=== PATIENT | female | born 1985 | race Caucasian/White ===

== ENCOUNTER → 2016-10-05 | Outpatient (CLI) | payer OTHER ==
--- NOTE | 2016-10-05 22:41 | MR ---
EXAMINATION TYPE: MR pelvis wo/w con DATE OF EXAM: 10/05/2016 8:57 PM COMPARISON: Outside pelvic ultrasound report November 22, 2015. CT abdomen and pelvis April 22, 2016. HI STORY: Pelvic and perineal pain and other chronic pain per order. Bleeding and pelvic pain rule out t umors per patient. CONTRAST: Standard multiplanar, multisequence MRI departmental protocol utilizing 10 mL intravenous MultiHance gadolinium contrast. Imaging is focused on the pelvis. FINDINGS: Uterus is anteverted in shape and within normal limits in size. No suspicious thickening of endometrial canal is identified. No suspicious myometrial masses are identified. Cervix is felt with in normal limits. There is tubular shaped low T1 and T2 signal intensity in vaginal canal likely refl ecting air from tampon use. Increased T1 signal central endometrium is consistent with active blood p roduct or menses. Junctional zone felt within normal limits. No significant free fluid in pelvis is s een. Both ovaries are identified and normal in size. Left ovary is seen best on axial image 17 series 601. Thin-walled cystic lesions in both ovaries likely reflect prominent follicles. No concerning adnexal masses are present. There is no suspicious small or large bowel dilatation. There is some prominence of fecal material in the visualized sigmoid colon and cecum. Patient has very little intra-abdominal fat making evaluatio n suboptimal. No concerning pelvic adenopathy is seen. Urinary bladder is felt within normal limits. Visualized oss eous structures are intact. There are small symmetric hip joint effusions seen. IMPRESSION: Perhaps mild to moderate colonic fecal stasis. No significant finding otherwise is seen t o account for patient's symptoms.
== END | disposition home or self-care (01) ==
LOC: RADMRIMAIN 19:52
PROVIDERS: ATTEND Family Medicine
DX: K59.8 Other specified functional intestinal disorders (principal); R10.2 Pelvic and perineal pain; G89.29 Other chronic pain
CPT/HCPCS: 72197; A9577

== ENCOUNTER → 2017-09-16 | Outpatient (CLI) | payer OTHER ==
--- NOTE | 2017-09-16 18:56 | CT ---
CT CHEST FOR PULMONARY EMBOLISM. EXAMINATION TYPE: CT angio chest DATE OF EXAM: 09/16/2017 INDICATION: Chest pain with shortness of breath CT DLP: 140.5 mGycm, Automated exposure control for dose reduction was used. CONTRAST: Patient injected with 100 mL of Omnipaque 350. COMPARISON: NONE TECHNIQUE: CT of the chest is performed on a spiral scan at 2 mm thick sections. Study is performed with intravenous contrast timed for evaluation for pulmonary embolism. This will limit additional po rtions of the evaluation. 3-D MIP images reconstructed by the technologist are reviewed on the compu ter in the coronal and sagittal planes. FINDINGS: No persistent filling defects are evident to suggest an acute pulmonary embolism. No mediastinal or hilar adenopathy enlarged by CT criteria is evident. The ascending aorta diameter at the level of the main pulmonary artery is 2.7 cm. The main pulmonary artery diameter at the bifur cation is 2.2 cm. Lung windows are clear. No peribronchial thickening is evident. No suspicious infiltrates or pleural effusions are evident. Limited CT section through the upper abdomen are unremarkable. IMPRESSIONS: 1. No acute pulmonary embolism. 2. No acute pulmonary process.
== END ==
LOC: RADCTMAIN 17:49
PROVIDERS: ATTEND Family Medicine
DX: R07.89 Other chest pain (principal)
CPT/HCPCS: 71275; Q9967

== ENCOUNTER → 2018-02-17 | Outpatient (CLI) | payer OTHER ==
--- NOTE | 2018-02-17 10:09 | USB ---
Reason for exam: clinical finding. Indicated problem(s): lump or thickening in the left breast. Physical Findings: Nurse Summary: patient states breast lumps bilateral intermittent x 8 months, 1cm movable, tender lump left breast at 9 o'clock (nurse mj). US Breast LT Left complete breast ultrasound includes all four quadrants, the retroareolar region and axilla. Finding demonstrates a 0.7 x 0.5 x 0.2cm oval, lymph node at 9 o'clock. These results were verbally communicated with the patient and result sheet given to the patient on 02/17/18. ASSESSMENT: Benign, BI-RAD 2 RECOMMENDATION: Routine screening mammogram of both breasts at age 42. Manage patient on a clinical basis.
== END | disposition home or self-care (01) ==
LOC: RADUSWWP 02-10 08:51
PROVIDERS: ATTEND Family Medicine
DX: D48.62 Neoplasm of uncertain behavior of left breast (principal)